=== PATIENT | female | born 1960 | race Caucasian/White ===

== ENCOUNTER → 2016-08-18 | Outpatient (CLI) | payer BC ==
[2016-08-18 07:38] LABS: MEAN CORPUSCULAR HEMOGLOBIN 31.1 PG (26.0-34.0); MEAN CORPUSCULAR HGB CONC 33.5 g/dL (31.0-37.0); MEAN CORPUSCULAR VOLUME 93 FL (80-100); MEAN PLATELET VOLUME 10.6 FL (6.0-9.5); PLATELET COUNT 127 10^3uL (150-450); WHITE BLOOD COUNT 3.26 10^3uL (4.0-11.0)
[2016-08-18 08:21] LABS: BAND NEUTROPHILS % 0 % (0-6); EOSINOPHILS % 4 % (0-4); LYMPHOCYTES # 0.8 #; MONOCYTES # 0.5 #; MONOCYTES % 15 % (3-11); RBC MORPH NORMAL (NORMAL); SEGMENTED NEUTROPHILS % 53 % (51-67); TOTAL CELLS COUNTED 100
[2016-08-18 08:39] LABS: ALBUMIN 4.5 g/dL (3.4-5.0); ANION GAP 14.5 MEQ/L (3-15); CALCULATED IONIZED CALCIUM 4.4 mg/dL (3.8-4.6); MAGNESIUM* 1.9 mg/dL (1.6-2.3); PHOSPHORUS 3.8 mg/dL (2.4-4.9); TOTAL PROTEIN 7.5 g/dL (6.4-8.5)
== END ==
LOC: LAB 07:17
PROVIDERS: ATTEND Internal Medicine Hematology & Oncology
DX: C50.112 Malignant neoplasm of central portion of left female breast (principal)
CPT/HCPCS: 36415; 80053; 82306; 83615; 83735; 84100; 85007; 85027

== ENCOUNTER 2016-11-03 07:27 | Day surgery (SDC) | payer BC ==
[~2016-11-03] VITALS: Ht 162.6 cm; Wt 67.0 kg
[~2016-11-03 07:27] MED LIST: AGM500T PO; ALEN70TA47 PO; BUPIVACAINE/EPINEPHRINE 0.5%-1:200,000 (MARCAINE) 30 ML VIAL INJ ONE; LACTATED RINGERS 1,000 ML IV SCH; NS FLUSH 10 ML PRN IV; SODIUM CHLORIDE FLUSH 3 ML SYR IV PRN
--- OUTSIDE RECORDS SUMMARY | 2016-11-03 07:32 | XMS REPORT | Continuity of Care Document ---
Author Author [facility] Address Unknown Phone Unavailable Allergies Active Description Code Type Severity Reaction Onset Reported/Identified Relationship to Patient Clinical Status Yes fluticasone [id number] Drug Allergy Unknown N/A 10/30/2016 Yes levofloxacin [id number] Drug Allergy Unknown N/A 10/30/2016 Medications Problems Date Dx Coded Attending Type Code Diagnosis Diagnosed By 05/06/1051 RAFAL BREWER, LULÚ Brooks Ot H81.11 05/06/1051 RAFAL BREWER, LULÚ Brooks Ot R42 02/07/2015 SILVIA BREWER, MALIK Feliciano Ot 611.79 02/07/2015 SILVIA BREWER, MALIK Feliciano Ot V76.12 02/18/2015 SILVIA BREWER, MALIK Feliciano Ot 793.80 02/18/2015 SILVIA BREWER, MALIK Feliciano Ot V76.12 02/20/2015 SILVIA BREWER, MALIK Feliciano Ot 793.80 02/20/2015 SILVIA BREWER, MALIK Feliciano Ot V76.12 03/04/2015 SILVIA BREWER, MALIK Feliciano Ot 793.80 03/04/2015 SILVIA BREWER, MALIK Feliciano Ot V76.12 03/27/2015 SILVIA BREWER, MALIK Feliciano Ot R92.2 06/21/2015 KT BREWER, PASCUAL Wilson Ot C50.112 06/26/2015 KT BREWER, PASCUAL Wilson Ot C50.112 07/08/2015 KT BREWER, PASCUAL Wilson Ot C50.112 07/08/2015 KT BREWER, PASCUAL Wilson Ot R42 07/08/2015 KT BREWER, PASCUAL Wilson Ot Z90.12 08/01/2015 KT BREWER, PASCUAL Wilson Ot C50.112 08/01/2015 KT BREWER, PASCUAL Wilson Ot I99.8 08/01/2015 KT BREWER, PASCUAL Wilson Ot R42 08/01/2015 RAFAL BREWER, LULÚ Brooks Ot C50.112 08/07/2015 RAFAL BREWER, LULÚ Brooks Ot H81.11 08/07/2015 RAFAL BREWER, LULÚ Brooks Ot R42 08/08/2015 LULÚ LYLES MD Ot C50.112 08/08/2015 LULÚ LYLES MD Ot C50.112 08/08/2015 PASCUAL MERAZ MD Ot C50.112 08/08/2015 PASCUAL MERAZ MD Ot I99.8 08/08/2015 PASCUAL MERAZ MD Ot R42 08/08/2015 LULÚ LYLES MD Ot H81.11 08/08/2015 LULÚ LYLES MD Ot R42 08/13/2015 LULÚ LYLES MD Ot H81.11 08/13/2015 LULÚ LYLES MD Ot R42 08/14/2015 LULÚ LYLES MD Ot C50.112 08/14/2015 LULÚ LYLES MD Ot H81.11 08/14/2015 LULÚ LYLES MD Ot R42 08/16/2015 LULÚ LYLES MD Ot C50.112 09/27/2015 LULÚ LYLES MD Ot Z03.89 ENCNTR FOR OBS FOR OTH SUSPECTED DISEASE 10/08/2015 LULÚ LYLES MD Ot Z03.89 ENCNTR FOR OBS FOR OTH SUSPECTED DISEASE 10/09/2015 LULÚ LYLES MD Ot Z03.89 ENCNTR FOR OBS FOR OTH SUSPECTED DISEASE 10/18/2015 LULÚ LYLES MD Ot R00.0 TACHYCARDIA, UNSPECIFIED 10/22/2015 LULÚ LYLES MD Ot C50.112 MALIGNANT NEOPLASM OF CENTRAL PORTION OF 10/29/2015 LULÚ LYLES MD Ot C50.112 MALIGNANT NEOPLASM OF CENTRAL PORTION OF 10/29/2015 LULÚ LYLES MD Ot C50.112 MALIGNANT NEOPLASM OF CENTRAL PORTION OF 10/30/2015 LULÚ LYLES MD Ot R00.2 PALPITATIONS 10/30/2015 LULÚ LYLES MD Ot R06.09 OTHER FORMS OF DYSPNEA 11/07/2015 LULÚ LYLES MD Ot R00.2 PALPITATIONS 11/07/2015 LULÚ LYLES MD Ot R06.09 OTHER FORMS OF DYSPNEA 11/07/2015 LULÚ LYLES MD Ot C50.112 MALIGNANT NEOPLASM OF CENTRAL PORTION OF 11/08/2015 LULÚ LYLES MD Ot C50.112 MALIGNANT NEOPLASM OF CENTRAL PORTION OF 11/22/2015 LULÚ LYLES MD Ot C50.112 MALIGNANT NEOPLASM OF CENTRAL PORTION OF 12/27/2015 LULÚ LYLES MD Ot C50.112 MALIGNANT NEOPLASM OF CENTRAL PORTION OF 01/03/2016 LULÚ LYLES MD Ot R13.10 DYSPHAGIA, UNSPECIFIED 01/05/2016 LULÚ LYLES MD Ot R13.10 DYSPHAGIA, UNSPECIFIED 01/17/2016 LULÚ LYLES MD Ot R13.10 DYSPHAGIA, UNSPECIFIED 01/21/2016 LULÚ LYLES MD Ot C50.112 MALIGNANT NEOPLASM OF CENTRAL PORTION OF 01/26/2016 LULÚ LYLES MD Ot C50.112 MALIGNANT NEOPLASM OF CENTRAL PORTION OF 02/18/2016 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 Ot J02.9 ACUTE PHARYNGITIS, UNSPECIFIED 02/20/2016 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 Ot J02.9 ACUTE PHARYNGITIS, UNSPECIFIED 02/21/2016 LULÚ LYLES MD Ot C50.112 MALIGNANT NEOPLASM OF CENTRAL PORTION OF 02/27/2016 LULÚ LYLES MD Ot C50.112 MALIGNANT NEOPLASM OF CENTRAL PORTION OF 03/03/2016 LULÚ LYLES MD Ot C50.112 MALIGNANT NEOPLASM OF CENTRAL PORTION OF 03/04/2016 LULÚ LYLES MD Ot C50.112 MALIGNANT NEOPLASM OF CENTRAL PORTION OF 03/06/2016 LULÚ LYLES MD Ot C50.112 MALIGNANT NEOPLASM OF CENTRAL PORTION OF 03/19/2016 LULÚ LYLES MD Ot C50.112 MALIGNANT NEOPLASM OF CENTRAL PORTION OF 05/27/2016 LULÚ LYLES MD Ot C50.112 MALIGNANT NEOPLASM OF CENTRAL PORTION OF 05/27/2016 LULÚ LYLES MD Ot R53.83 OTHER FATIGUE 05/31/2016 LULÚ LYLES MD Ot C50.112 MALIGNANT NEOPLASM OF CENTRAL PORTION OF 05/31/2016 LULÚ LYLES MD Ot R53.83 OTHER FATIGUE 06/03/2016 LULÚ LYLES MD Ot C50.112 MALIGNANT NEOPLASM OF CENTRAL PORTION OF 06/05/2016 LULÚ LYLES MD Ot C50.112 MALIGNANT NEOPLASM OF CENTRAL PORTION OF 06/05/2016 LULÚ LYLES MD Ot C50.112 MALIGNANT NEOPLASM OF CENTRAL PORTION OF 06/10/2016 LULÚ LYLES MD Ot C50.112 MALIGNANT NEOPLASM OF CENTRAL PORTION OF 06/10/2016 LULÚ LYLES MD Ot Z90.12 ACQUIRED ABSENCE OF LEFT BREAST AND NIPP 06/11/2016 LULÚ LYLES MD, Ot C50.112 MALIGNANT NEOPLASM OF CENTRAL PORTION OF 06/11/2016 LULÚ LYLES MD, Ot R53.83 OTHER FATIGUE 06/11/2016 LULÚ LYLES MD, Ot C50.112 MALIGNANT NEOPLASM OF CENTRAL PORTION OF 06/17/2016 LULÚ LYLES MD, Ot C50.112 MALIGNANT NEOPLASM OF CENTRAL PORTION OF 06/17/2016 LULÚ LYLES MD, Ot C50.112 MALIGNANT NEOPLASM OF CENTRAL PORTION OF 06/17/2016 LULÚ LYLES MD, Ot Z90.12 ACQUIRED ABSENCE OF LEFT BREAST AND NIPP 08/21/2016 LULÚ LYLES MD, Ot C50.112 MALIGNANT NEOPLASM OF CENTRAL PORTION OF 08/26/2016 LULÚ LYLES MD, Ot C50.112 MALIGNANT NEOPLASM OF CENTRAL PORTION OF 10/30/2016 LULÚ LYLES MD, Ot C50.112 MALIGNANT NEOPLASM OF CENTRAL PORTION OF 10/30/2016 LULÚ LYLES MD, Ot C50.112 MALIGNANT NEOPLASM OF CENTRAL PORTION OF Procedures Results Test Result Range CBC AND MANUAL DIFF - 02/24/16 15:46 Blood automated leukocyte count 3.87 4.0 -11.0 Erythrocytes 4.02 4.00-5.00 12.0-16.0;g/dL 13.1 12.0-15.5 Hematocrit 38.00 35.00-45.00 Automated erythrocyte mean corpuscular volume 95 80-100 Mean corpuscular hemoglobin (MCH) determination 32.6 26.0-34.0 Automated erythrocyte mean corpuscular hemoglobin concentration measurement ( mass/volume) 34.5 31.0-37.0 Erythrocyte distribution width 12.5 11.8 -15.6 Automated blood platelet count 136 150- 450 Automated blood platelet mean volume measurement 11.2 6.0-9.5 Total cell count 100 Blood segmented neutrophils percentage 50 51-67 Blood band neutrophil count as percentage of total leukocytes 1 0-6 LYMPHOCYTES % 36 20-46 Automated monocyte percentage 7 3-11 Eosinophil count auto 4 0-4 Basophils 2 0-2 NEUTROPHILS(SEG) 1.9 NEUTROPHILS # BANDS 0.0 Blood lymphocytes manual count (number/volume) 1.4 Automated blood monocyte count 0.2 Blood absolute eosinophil count 0.1 Basophils 0.1 Erythrocyte morphology assessment NORMAL NORMAL Comprehensive metabolic panel - 02/24/16 15:46 Sodium measurement 88 70-110 Carbon dioxide measurement 29 22-29 Serum or plasma anion gap 15.7 3-15 BLOOD UREA NITROGEN 14 7-18 CREATININE SERUM 0.84 0.6-1.2 Brucella species antibody panel (IgG, IgM) 17 10-20 Estimated glomerular filtration rate (GFR) 84.6 Estimated glomerular filtration rate (GFR) non- 69.9 OSMOLALITY,CALCULATED 278 280-300 CALCIUM 10.7 8.8-10.8 Calculated ionized calcium measurement 4.4 3.8-4.6 BILIRUBIN,TOTAL 0.6 0.1-1.0 Serum or plasma alkaline phosphatase measurement 41 38-126 ASPARTATE AMINO TRANSFERASE 32 15-37 ALANINE AMINOTRANSFERASE 54 30-65 Serum or plasma total protein measurement 7.9 6.4-8.5 Serum or plasma albumin measurement 4.8 3.4-5.0 Serum or plasma albumin/globulin mass ratio 1.548 1.1-1.8 Phosphorus measurement - 02/24/16 15:46 Phosphorus measurement 2.9 2.4-4.9 Magnesium measurement - 02/24/16 15:46 Magnesium measurement 2.1 1.6-2.3 Lactate dehydrogenase (LDH) measurement - 02/24/16 15:46 Sodium measurement 430 313-618 CBC AND MANUAL DIFF - 05/25/16 15:45 Blood automated leukocyte count 3.98 4.0 -11.0 Erythrocytes 3.97 4.00-5.00 12.0-16.0;g/dL 12.6 12.0-15.5 Hematocrit 36.50 35.00-45.00 Automated erythrocyte mean corpuscular volume 92 80-100 Mean corpuscular hemoglobin (MCH) determination 31.7 26.0-34.0 Automated erythrocyte mean corpuscular hemoglobin concentration measurement ( mass/volume) 34.5 31.0-37.0 Erythrocyte distribution width 13.4 11.8 -15.6 Automated blood platelet count 128 150- 450 Automated blood platelet mean volume measurement 10.7 6.0-9.5 Total cell count 100 Blood segmented neutrophils percentage 59 51-67 Blood band neutrophil count as percentage of total leukocytes 1 0-6 LYMPHOCYTES % 27 20-46 Automated monocyte percentage 11 3-11 Eosinophil count auto 1 0-4 Basophils 1 0-2 NEUTROPHILS(SEG) 2.4 NEUTROPHILS # BANDS 0.0 Blood lymphocytes manual count (number/volume) 1.1 Automated blood monocyte count 0.3 Blood absolute eosinophil count 0.0 Basophils 0.0 Erythrocyte morphology assessment NORMAL NORMAL Comprehensive metabolic panel - 05/25/16 15:45 Sodium measurement 86 70-110 Carbon dioxide measurement 28 22-29 Serum or plasma anion gap 15.1 3-15 BLOOD UREA NITROGEN 19 7-18 CREATININE SERUM 1.08 0.6-1.2 Brucella species antibody panel (IgG, IgM) 18 10-20 Estimated glomerular filtration rate (GFR) 63.1 Estimated glomerular filtration rate (GFR) non- 52.1 OSMOLALITY,CALCULATED 280 280-300 CALCIUM 11.1 8.8-10.8 Calculated ionized calcium measurement 5.0 3.8-4.6 BILIRUBIN,TOTAL 0.5 0.1-1.0 Serum or plasma alkaline phosphatase measurement 46 38-126 ASPARTATE AMINO TRANSFERASE 35 15-37 ALANINE AMINOTRANSFERASE 67 30-65 Serum or plasma total protein measurement 6.9 6.4-8.5 Serum or plasma albumin measurement 4.5 3.4-5.0 Serum or plasma albumin/globulin mass ratio 1.875 1.1-1.8 Phosphorus measurement - 05/25/16 15:45 Phosphorus measurement 3.4 2.4-4.9 Magnesium measurement - 05/25/16 15:45 Magnesium measurement 1.9 1.6-2.3 Lactate dehydrogenase (LDH) measurement - 05/25/16 15:45 Sodium measurement 427 313-618 Vitamin D+Metabolites - 05/25/16 15:45 Vitamin D+Metabolites 54.3 30.0-100.0 PTH,INTACT - 05/28/16 10:40 PTH,INTACT 192.0 7.5-53.5 THYROID STIMULATING HORMONE* - 05/28/16 10:40 THYROID STIMULATING HORMONE 1.04 0.46- 4.68 CBC AND MANUAL DIFF - 08/18/16 07:30 Blood automated leukocyte count 3.26 4.0 -11.0 Erythrocytes 4.38 4.00-5.00 12.0-16.0;g/dL 13.6 12.0-15.5 Hematocrit 40.60 35.00-45.00 Automated erythrocyte mean corpuscular volume 93 80-100 Mean corpuscular hemoglobin (MCH) determination 31.1 26.0-34.0 Automated erythrocyte mean corpuscular hemoglobin concentration measurement ( mass/volume) 33.5 31.0-37.0 Erythrocyte distribution width 13.0 11.8 -15.6 Automated blood platelet count 127 150- 450 Automated blood platelet mean volume measurement 10.6 6.0-9.5 Total cell count 100 Blood segmented neutrophils percentage 53 51-67 Blood band neutrophil count as percentage of total leukocytes 0 0-6 LYMPHOCYTES % 24 20-46 Automated monocyte percentage 15 3-11 Eosinophil count auto 4 0-4 Basophils 0 0-2 Manual blood metamyelocytes/100 leukocytes 0 0-1 NEUTROPHILS(SEG) 1.7 NEUTROPHILS # BANDS 0.0 Blood lymphocytes manual count (number/volume) 0.8 Automated blood monocyte count 0.5 Blood absolute eosinophil count 0.1 Basophils 0.0 Lymphocytes.variant 4 <1 Erythrocyte morphology assessment NORMAL NORMAL Comprehensive metabolic panel - 08/18/16 07:30 Sodium measurement 99 70-110 CARBON DIOXIDE 26 22-29 Serum or plasma anion gap 14.5 3-15 BLOOD UREA NITROGEN 16 7-18 CREATININE SERUM 0.88 0.6-1.2 Brucella species antibody panel (IgG, IgM) 18 10-20 Estimated glomerular filtration rate (GFR) 79.9 Estimated glomerular filtration rate (GFR) non- 66.0 OSMOLALITY,CALCULATED 280 280-300 CALCIUM 10.3 8.8-10.8 Calculated ionized calcium measurement 4.4 3.8-4.6 BILIRUBIN,TOTAL 0.6 0.1-1.0 Serum or plasma alkaline phosphatase measurement 47 38-126 ASPARTATE AMINO TRANSFERASE 40 15-37 ALANINE AMINOTRANSFERASE 70 30-65 Serum or plasma total protein measurement 7.5 6.4-8.5 Serum or plasma albumin measurement 4.5 3.4-5.0 Serum or plasma albumin/globulin mass ratio 1.500 1.1-1.8 Phosphorus measurement - 08/18/16 07:30 Phosphorus measurement 3.8 2.4-4.9 Magnesium measurement - 08/18/16 07:30 Magnesium measurement 1.9 1.6-2.3 Lactate dehydrogenase (LDH) measurement - 08/18/16 07:30 Sodium measurement 444 313-618 Vitamin D+Metabolites - 08/18/16 07:30 Vitamin D+Metabolites 63.6 30.0-100.0 Encounters ACCT No. Visit Date/Time Discharge Status Pt. Type Provider Facility Loc./Unit Complaint [id number] 10/28/2015 08:30:00 2015 00:01:00 DIS Outpatient RAFAL BREWER, [facility] LAB LAB WORK [id number] 08/21/2015 07:33:00 2015 00:01:00 DIS Outpatient RAFAL BREWER, [facility] LAB [id number] 08/13/2015 14:30:00 2015 10:52:00 DIS Outpatient RAFAL BREWER, [facility] PT [id number] 07/08/2015 09:52:00 2015 15:35:00 DIS Outpatient KT BREWER, [facility] [id number] 06/20/2015 06:32:00 2015 15:21:00 DIS Outpatient KT BREWER, [facility] [id number] 03/15/2015 08:39:00 2014 23:59:59 CLS Outpatient SILVIA MD, [facility] RAD [id number] 02/07/2015 07:18:00 2014 23:59:59 CLS Outpatient SILVIA MD, [facility] RAD [id number] 01/16/2014 07:57:00 2013 23:59:59 CLS Outpatient SILVIA MD, [facility] RAD [id number] 11/03/2016 09:00:00 PEN Preadanais MERAZ MD, [facility] REMOVAL OF RT. POWER PORT [id number] 08/18/2016 07:17:00 ACT Outpatient RAFAL BREWER, [facility] LAB [id number] 06/04/2016 08:40:00 ACT Outpatient RAFAL BREWER, [facility] RAD C50.112 - BREAST CA [id number] 06/02/2016 08:22:00 ACT Outpatient RAFAL BREWER [facility] RAD C50.112 - BREAST CA [id number] 05/28/2016 10:36:00 ACT Outpatient RAFAL BREWER [facility] LAB [id number] 05/25/2016 15:38:00 ACT Outpatient RAFAL BREWER [facility] LAB [id number] 03/02/2016 14:44:00 ACT Outpatient RAFAL BREWER, [facility] RAD BREAST CA - C50.112 [id number] 02/24/2016 15:41:00 ACT Outpatient RAFAL BREWER, [facility] LAB [id number] 02/07/2016 17:07:00 ACT Outpatient Bayron Marina Richy [facility] [id number] 01/27/2016 00:03:00 PEN Preadmit RAFAL BREWER, [facility] LAB LAB WORK [id number] 01/01/2016 09:22:00 ACT Outpatient RAFAL BREWER, [facility] RAD R13.10 DYSPHAGIA [id number] 12/24/2015 07:41:00 ACT Outpatient RAFAL BREWER, [facility] RAD C50.112 - BREAST CA [id number] 10/24/2015 10:07:00 ACT Outpatient RAFAL BREWER, [facility] RT [id number] 10/11/2015 12:41:00 ACT Outpatient RAFAL BREWER, [facility] RT [id number] 09/23/2015 14:22:00 ACT Outpatient RAFAL BREWER, [facility] RAD [id number] 07/17/2015 14:47:00 ACT Outpatient RAFAL BREWER, [facility] LAB [id number] 07/16/2015 11:50:00 ACT Outpatient KT BREWER, [facility] RAD [id number] 06/14/2015 10:36:00 ACT Outpatient KT BREWER, [facility] RAD
[2016-11-03 07:36] VITALS: BP 132/89
[2016-11-03] MEDS ORDERED: LETR2.5T5 PO (07:53)
[2016-11-03] MEDS ORDERED: ASCO1TAB22 PO (07:53)
[2016-11-03] MEDS ORDERED: VIT1TABL57 PO (07:53)
[2016-11-03] MEDS ORDERED: PROPOFOL 20 ML IV ONE (08:03)
[2016-11-03] MEDS ORDERED: ALFENTANIL 500 MCG/ML (ALFENTA) 5 ML AMP IV ONE (08:03)
[2016-11-03] MEDS ORDERED: MIDAZOLAM 2 MG/2 ML (VERSED) VIAL ONE (08:03)
[2016-11-03 09:29] VITALS: BP 128/79
[2016-11-03 10:15] VITALS: BP 118/58
--- NOTE | 2016-11-03 15:32 | OPERATIVE REPORT ---
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 POST-OPERATIVE DIAGNOSIS: Metaplastic carcinoma of the left breast. OPERATIVE PROCEDURE: Excision of power port right subclavicular region. SURGEON: Shelton Dunham MD ANESTHESIA: IV sedation, Artem Mancia CRNA. Local infiltration 0.5% Marcaine with epinephrine. 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 She is due for port removal having completed her chemotherapy. DESCRIPTION OF PROCEDURE: The patient was brought to the operating room and under IV sedation she was prepped and draped in the usual fashion using Betadine gel. The area of the port on the right subclavicular region was anesthetized with 0.5% Marcaine with epinephrine. A transverse incision was made through the previous incision and brought down to the capsule of the port. This capsule was opened the port was disconnected from its anchoring sutures and then the port and intervenous cannula were removed intact. The patient's head was elevated. The exit side of the catheter was oversewn with 3-0 Vicryl sutures and the subcutaneous tissue closed with interrupted 3-0 Vicryl suture. The skin was closed with Dermabond surgical adhesive. The patient was then taken back to day surgery in good condition. ESTIMATED BLOOD LOSS: Less than 10 mL. COMPLICATIONS: None.
== END 2016-11-03 10:20 | disposition home or self-care (01) ==
LOC: ASC 07:27
PROVIDERS: ATTEND Surgery
DX: C50.912 Malignant neoplasm of unspecified site of left female breast (principal)
CPT/HCPCS: 36590; J2250; J7120